=== PATIENT | female | born 1980 | race Caucasian/White ===

== ENCOUNTER 2021-01-17 23:24 | Emergency (ER) | payer OTHER ==
[2021-01-17] MEDS ORDERED: IBUPROFEN 400 MG TABLET (FP) PO ONE ×2 (23:36)
[2021-01-17 23:46] VITALS: BP 131/101; PULSE 70; TEMP 99.4; BMI 25.1
== END 2021-01-18 00:33 | disposition home or self-care (01) ==
LOC: FER 23:24
DX: S93.602A Unspecified sprain of left foot, initial encounter (principal)
CPT/HCPCS: 73630-TC-LT; 99283-25